=== PATIENT | male | born 1960 | race Caucasian/White ===

== ENCOUNTER 2016-10-14 20:15 | Inpatient (IN) | payer OTHER, MEDICARE ==
[~2016-10-14] VITALS: Ht 172.7 cm; Wt 83.9 kg
[2016-10-14] MEDS ORDERED: LISINOPRIL10 MG PO (22:45)
[2016-10-14] MEDS ORDERED: NEURONTIN 400400 MG PO (22:45)
[2016-10-14] MEDS ORDERED: ASPIRIN 325MG325 MG NG (22:46)
[2016-10-14] MEDS ORDERED: TENORMIN 25 MG25 MG PO (22:46)
[2016-10-15 05:15] LABS: HEMOGLOBIN 13.2 gm/dl (14.0-17.5); RED BLOOD COUNT 4.1 M/UL (4.20-5.50); WHITE BLOOD COUNT 5.7 K/UL (4.5-11.0)
[2016-10-15 05:39] LABS: BUN/CREATININE RATIO 10 (0-10)
[2016-10-16 03:52] LABS: HEMOGLOBIN 11.7 gm/dl (14.0-17.5); WHITE BLOOD COUNT 6.4 K/UL (4.5-11.0)
[2016-10-16 04:01] LABS: RED BLOOD COUNT 3.68 M/UL (4.20-5.50)
[2016-10-16 04:16] LABS: BUN/CREATININE RATIO 16 (0-10)
[2017-02-26] MEDS ORDERED: ATIVAN1 MG PO (16:48)
[2017-02-26] MEDS ORDERED: TOPROL XL25 MG PO (16:48)
[2017-02-26] MEDS ORDERED: PROTONIX 40 MG40 M1 PO (16:48)
[2017-02-26] MEDS ORDERED: LIPITOR TAB 2020 MG PO (16:49)
[2017-02-26] MEDS ORDERED: NORVASC 5 MG TAB5 MG PO (16:49)
[2017-02-26] MEDS ORDERED: FISH OIL 1,0001 EAC3 PO (16:51)
[2017-02-26] MEDS ORDERED: TRAZODONE HCL100 MG PO (16:51)
[2017-02-26] MEDS ORDERED: TRICOR 145 MG145 MG PO (16:52)
== END 2016-10-16 17:27 | disposition left against medical advice (07) | DRG 894 ==
LOC: PROG CARE 20:15
PROVIDERS: Internal Medicine; ADMIT Internal Medicine
PROC: HZ2ZZZZ Detoxification Services for Substance Abuse Treatment (ICD-10-PCS; principal; 2016-10-14)
DX: F10.239 Alcohol dependence with withdrawal, unspecified (principal); K52.9 Noninfective gastroenteritis and colitis, unspecified; G25.0 Essential tremor; J44.9 Chronic obstructive pulmonary disease, unspecified; I10 Essential (primary) hypertension; Z63.5 Disruption of family by separation and divorce; F17.210 Nicotine dependence, cigarettes, uncomplicated; I44.7 Left bundle-branch block, unspecified; J32.0 Chronic maxillary sinusitis; F15.90 Other stimulant use, unspecified, uncomplicated; F11.90 Opioid use, unspecified, uncomplicated; F12.90 Cannabis use, unspecified, uncomplicated; Z85.46 Personal history of malignant neoplasm of prostate; Z90.49 Acquired absence of other specified parts of digestive tract; Z90.79 Acquired absence of other genital organ(s); Z88.5 Allergy status to narcotic agent; Z79.899 Other long term (current) drug therapy; Z79.82 Long term (current) use of aspirin; Z82.49 Family history of ischemic heart disease and other diseases of the circulatory system; Z83.3 Family history of diabetes mellitus
CPT/HCPCS: 36415; 80048; 83690; 83735; 85027; 94640; C9113; J1650; J1885; J1956; J2060; J2920; J3411; J3475; J3480; J7030